=== PATIENT | female | born 1995 | race Hispanic/Latino ===

== ENCOUNTER 2017-03-21 01:18 | Observation (INO) | payer MEDICAID ==
[~2017-03-21] VITALS: Ht 165.1 cm; Wt 81.6 kg
[2017-03-21 01:57] LABS: APPEARANCE,URINE Clear (CLEAR); BILIRUBIN,URINE Negative (NEGATIVE); COLOR,URINE Yellow (YELLOW); GLUCOSE, URINE (UA) Negative (NEGATIVE); KETONES,URINE Negative (NEGATIVE); LEUKOCYTE ESTERASE ,URINE Small (NEGATIVE); NITRATE,URINE Negative (NEGATIVE); OCCULT BLOOD,URINE Negative (NEGATIVE); PROTEIN,URINE Negative (NEGATIVE)
[2017-03-21] MEDS: LACTATED RINGERS 1000ML 1,000 ML IV SCH ×2 (02:05→05:49)
[2017-03-21 02:13] LABS: AMORPHOUS SEDIMENT,UR Rare /LPF (None Seen); BACTERIA,URINE None Seen /HPF (None Seen); RBC,URINE None Seen /HPF (0-1); SQUAMOUS EPITHELIAL CELL,UR Few /LPF (0-2); WBC,URINE 0-1 /HPF (0-1)
== END 2017-03-21 10:02 | disposition home or self-care (01) ==
LOC: EDH 01:18 → LDH 01:19
PROVIDERS: ADMIT Obstetrics & Gynecology; ATTEND Obstetrics & Gynecology
DX: O60.03 Preterm labor without delivery, third trimester (principal); Z3A.35 35 weeks gestation of pregnancy
CPT/HCPCS: 81001; 96360; 96361 ×2; 99285; G0378 ×9; J7120

== ENCOUNTER 2017-04-16 10:11 | Observation (INO) | payer MEDICAID ==
[2017-04-16] MEDS ORDERED: LACTATED RINGERS 1000ML 1,000 ML IV SCH (10:30)
[2017-04-16 10:45] LABS: APPEARANCE,URINE Clear (CLEAR); BILIRUBIN,URINE Negative (NEGATIVE); COLOR,URINE Yellow (YELLOW); GLUCOSE, URINE (UA) Negative (NEGATIVE); KETONES,URINE Negative (NEGATIVE); LEUKOCYTE ESTERASE ,URINE Negative (NEGATIVE); NITRATE,URINE Negative (NEGATIVE); OCCULT BLOOD,URINE Negative (NEGATIVE); PH,URINE 6.5 (5.0-8.0); PROTEIN,URINE Negative (NEGATIVE); UROBILINOGEN,URINE 0.2 mg/dL (0.2-1.0)
[2017-04-16] MEDS ORDERED: CEFTRIAXONE SODIUM 1 GM ONE (10:57)
[2017-04-17] MEDS ORDERED: CEFTRIAXONE SODIUM 1 GM IV SCH (09:00)
== END 2017-04-16 11:50 | disposition home or self-care (01) ==
LOC: EDH 10:11 → LDH 10:12
PROVIDERS: ADMIT Obstetrics & Gynecology; ATTEND Obstetrics & Gynecology
DX: O62.9 Abnormality of forces of labor, unspecified (principal); Z3A.38 38 weeks gestation of pregnancy
CPT/HCPCS: 81003; 96360; 99285; G0378 ×2; J0696

== ENCOUNTER 2017-04-20 11:00 | Inpatient (IN) | payer MEDICAID ==
[~2017-04-20] VITALS: Ht 165.1 cm; Wt 85.3 kg
[2017-04-21] MEDS ORDERED: LACTATED RINGERS 1000ML 1,000 ML IV SCH (05:00)
[2017-04-21] MEDS ORDERED: CEFAZOLIN SODIUM 1 GM VIAL IVP PRN (05:00)
[2017-04-21] MEDS ORDERED: PREN-196 PO (05:03)
[2017-04-21 05:34] LABS: HEMATOCRIT 30.6 % (36-48); MEAN CORPUSCULAR HEMOGLOBIN 22.2 pg (27.0-33.0); MEAN CORPUSCULAR HGB CONC 31.4 g/dL (32.0-36.0); MEAN CORPUSCULAR VOLUME 70.8 fL (79-99); NUCLEATED RED BLOOD CELLS 0.1 % (0.0-0.19); PLATELET COUNT (AUTO) 202 K/uL (130-400); RED BLOOD CELL COUNT(AUTO) 4.32 MIL/uL (4.00-5.50); RED CELL DISTRIBUTION WIDTH 22.8 % (11.0-15.5); WHITE BLOOD COUNT (AUTO) 11.6 K/uL (4.8-10.8)
[2017-04-21 05:48] LABS: AMPHET/METH SCREEN,URINE NEGATIVE (NEGATIVE); BARBITURATE SCREEN, URINE NEGATIVE (NEGATIVE); BENZODIAZEPINES SCREEN,URINE NEGATIVE (NEGATIVE); CANNABINOID SCREEN,URINE NEGATIVE (NEGATIVE); COCAINE SCREEN,URINE NEGATIVE (NEGATIVE); OPIATE SCREEN,URINE NEGATIVE (NEGATIVE); PHENCYCLIDINE SCREEN,URINE NEGATIVE (NEGATIVE)
[2017-04-21] MEDS ORDERED: OXYTOCIN 10 USP UNITS/ML ONE ×3 (07:11)
[2017-04-21] MEDS ORDERED: ONDANSETRON HCL 4 MG/2 ML VIAL ONE (07:11)
[2017-04-21] MEDS ORDERED: METOCLOPRAMIDE 10 MG/2 ML VIAL IVP PRN (08:30)
[2017-04-21] MEDS ORDERED: DiphenhydrAMINE HCL 50 MG/ML VIAL IVP PRN (08:30)
[2017-04-21] MEDS ORDERED: MORPHINE SULFATE 2 MG/ML 1ML SYG IVP PRN (08:30)
[2017-04-21] MEDS ORDERED: ONDANSETRON HCL 4 MG/2 ML VIAL IVP PRN ×2 (08:30)
[2017-04-21] MEDS ORDERED: PROMETHAZINE HCL 25 MG/ML 1ML AMPULE IM PRN (08:30)
[2017-04-21] MEDS ORDERED: NALOXONE HCL 0.4 MG/1 ML ML IVP PRN ×2 (08:30)
[2017-04-21] MEDS ORDERED: ONDANSETRON HCL 4 MG/2 ML 8 MG in SODIUM CHLORIDE 0.9% 50 ML IVP NR (08:30)
[2017-04-21] MEDS ORDERED: HYDROCODONE/ACETAMINOPHEN 5/325 MG TAB PO PRN (08:30)
[2017-04-21] MEDS ORDERED: EPHEDRINE SULFATE 50 MG/ML AMPULE IVP PRN (08:30)
[2017-04-21] MEDS ORDERED: MEPERIDINE-PF 50 MG/ML SYG ONE (08:55)
[2017-04-21 09:14] VITALS: BP 141/92
[2017-04-21] MEDS ORDERED: SODIUM CHLORIDE 0.9% 10 ML VIAL IVP PRN (11:30)
[2017-04-21 11:37] VITALS: BP 141/92
[2017-04-21] MEDS: HYDROCODONE/ACETAMINOPHEN 5/325 MG TAB PO PRN ×2 (11:40→17:19)
[2017-04-21] MEDS: PROMETHAZINE HCL 25 MG/ML 1ML AMPULE IM PRN ×3 (13:10→23:32)
[2017-04-21] MEDS: MEPERIDINE-PF 75 MG/ML SYG IM PRN ×3 (13:11→23:33)
[2017-04-21 15:15] VITALS: BP 140/80
[2017-04-21] MEDS: DEXTROSE 5 %-0.45 % NACL 1,000 ML IV SCH ×2 (17:21→23:24)
[2017-04-21 19:20] VITALS: BP 127/79
[2017-04-21 23:44] VITALS: BP 138/69
[2017-04-22 03:00] VITALS: BP 134/76
[2017-04-22] MEDS: HYDROCODONE/ACETAMINOPHEN 5/325 MG TAB PO PRN (03:24)
[2017-04-22 06:00] LABS: HEMATOCRIT 29.6 % (36-48); MEAN CORPUSCULAR HEMOGLOBIN 22.3 pg (27.0-33.0); MEAN CORPUSCULAR HGB CONC 31.3 g/dL (32.0-36.0); MEAN CORPUSCULAR VOLUME 71.3 fL (79-99); PLATELET COUNT (AUTO) 181 K/uL (130-400); RED BLOOD CELL COUNT(AUTO) 4.15 MIL/uL (4.00-5.50); RED CELL DISTRIBUTION WIDTH 22.2 % (11.0-15.5); WHITE BLOOD COUNT (AUTO) 12.7 K/uL (4.8-10.8)
[2017-04-22] MEDS ORDERED: FLU VACC QS2017-18 36MOS UP/PF 60 MCG/0.5 ML ML IM ONE (06:30)
[2017-04-22] MEDS: DEXTROSE 5 %-0.45 % NACL 1,000 ML IV SCH (07:50)
[2017-04-22 08:02] VITALS: BP 120/59
[2017-04-22] MEDS ORDERED: BISACODYL 10 MG SUPP.RECT RC PRN (08:15)
[2017-04-22] MEDS ORDERED: LANOLIN 30GM OINTMENT TP PRN (08:15)
[2017-04-22] MEDS ORDERED: ACETAMINOPHEN-CODEINE 300/30MG TAB PO PRN (08:15)
[2017-04-22] MEDS: DOCUSATE SODIUM 100 MG CAP PO SCH ×2 (09:21→20:26)
[2017-04-22] MEDS: SIMETHICONE 80 MG TAB.CHEW PO PRN ×3 (09:21→20:26)
[2017-04-22] MEDS: ACETAMINOPHEN-CODEINE 300/30MG TAB PO PRN ×3 (09:21→22:01)
[2017-04-22 11:35] LABS: HEPATITIS Bs ANTIGEN SCREEN P Negative (Negative)
[2017-04-22 11:38] VITALS: BP 112/55
[2017-04-22] MEDS: IBUPROFEN 600 MG TABLET PO PRN ×2 (12:42→18:08)
[2017-04-22 15:49] VITALS: BP 113/57
[2017-04-22 19:24] VITALS: BP 124/63
[2017-04-22] MEDS ORDERED: FLU VACC QS2017-18 36MOS UP/PF 60 MCG/0.5 ML ML IM SCH (19:30)
[2017-04-22] MEDS: DIPH,PERTUSS(ACELL),TET VAC/PF 0.5 ML VIAL IM SCH (20:28)
[2017-04-22 23:20] VITALS: BP 128/71
[2017-04-23 03:16] VITALS: BP 110/55
[2017-04-23] MEDS: IBUPROFEN 600 MG TABLET PO PRN (03:19)
[2017-04-23 07:35] VITALS: BP 118/50
[2017-04-23] MEDS: DIPH,PERTUSS(ACELL),TET VAC/PF 0.5 ML VIAL IM SCH (08:15)
[2017-04-23] MEDS: DOCUSATE SODIUM 100 MG CAP PO SCH (09:09)
[2017-04-23] MEDS: ACETAMINOPHEN-CODEINE 300/30MG TAB PO PRN (09:10)
[2017-04-23 11:18] VITALS: BP 101/54
== END 2017-04-23 13:50 | disposition home or self-care (01) | DRG 540 ==
LOC: EDSTATUS 11:00 → LDH 04-21 04:49 → WSH 04-21 09:10
PROVIDERS: ADMIT Obstetrics & Gynecology; ATTEND Obstetrics & Gynecology
PROC: 10D00Z1 Extraction of Products of Conception, Low, Open Approach (ICD-10-PCS; principal; 2017-04-21 07:00)
PROC: 3E0234Z Introduction of Serum, Toxoid and Vaccine into Muscle, Percutaneous Approach (ICD-10-PCS; 2017-04-22)
DX: O34.211 Maternal care for low transverse scar from previous cesarean delivery (principal); O69.81X0 Labor and delivery complicated by cord around neck, without compression, not applicable or unspecified; Z37.0 Single live birth; Z3A.38 38 weeks gestation of pregnancy; Z23 Encounter for immunization
CPT/HCPCS: 36415; 59510; 80305; 85027; 86592; 86850; 86900; 86901; 87340; 90715; A4344; A4450; A4606; J0690; J2175; J2405; J2550; J2590; J7120; Q2038

== ENCOUNTER 2017-08-02 16:59 | Emergency (ER) | payer MEDICAID, OTHER ==
[~2017-08-02 16:59] MED LIST: PREN-196 PO
== END 2017-08-02 20:20 | disposition home or self-care (01) ==
LOC: EDH 16:59
DX: J02.0 Streptococcal pharyngitis (principal)
CPT/HCPCS: 81025

== ENCOUNTER 2017-08-29 13:57 | Emergency (ER) | payer SELFPAY ==
[2017-08-29 14:24] LABS: APPEARANCE,URINE Clear (CLEAR); BILIRUBIN,URINE Negative (NEGATIVE); COLOR,URINE Yellow (YELLOW); GLUCOSE, URINE (UA) Negative (NEGATIVE); KETONES,URINE Negative (NEGATIVE); LEUKOCYTE ESTERASE ,URINE Negative (NEGATIVE); NITRATE,URINE Negative (NEGATIVE); OCCULT BLOOD,URINE Negative (NEGATIVE); PROTEIN,URINE Negative (NEGATIVE)
[2017-08-29 14:28] LABS: HCG,QUAL RESULT NEGATIVE (NEGATIVE)
[2017-08-29 14:36] LABS: AMPHET/METH SCREEN,URINE NEGATIVE (NEGATIVE); BARBITURATE SCREEN, URINE NEGATIVE (NEGATIVE); BENZODIAZEPINES SCREEN,URINE NEGATIVE (NEGATIVE); CANNABINOID SCREEN,URINE NEGATIVE (NEGATIVE); COCAINE SCREEN,URINE NEGATIVE (NEGATIVE); OPIATE SCREEN,URINE NEGATIVE (NEGATIVE); PHENCYCLIDINE SCREEN,URINE NEGATIVE (NEGATIVE)
[2017-08-29 14:38] LABS: BASOPHILS % (AUTO) 0.9 % (0.0-5.0); EOSINOPHILS % (AUTO) 3.3 % (0.0-8.0); HEMATOCRIT 37.6 % (36-48); LYMPHOCYTES % (AUTO) 34.2 % (21.0-51.0); MEAN CORPUSCULAR HEMOGLOBIN 26.9 pg (27.0-33.0); MEAN CORPUSCULAR VOLUME 81.6 fL (79-99); NEUTROPHILS % (AUTO) 54.6 % (40.0-77.0); PLATELET COUNT (AUTO) 281 K/uL (130-400); RED BLOOD CELL COUNT(AUTO) 4.61 MIL/uL (4.00-5.50); WHITE BLOOD COUNT (AUTO) 6.4 K/uL (4.8-10.8)
[2017-08-29 14:48] LABS: CREATININE 0.7 mg/dL (0.5-1.5); POTASSIUM 3.6 mmol/L (3.5-5.1)
[2017-08-29 14:52] LABS: ALBUMIN 4.1 g/dL (3.5-5.0); BILIRUBIN,TOTAL 0.6 mg/dL (0.2-1.0); TOTAL PROTEIN, SERUM 8.6 g/dL (6.0-8.3)
[2017-08-29] MEDS ORDERED: KETOROLAC TROMETHAMINE 60 MG/2 ML VIAL ONE ×2 (15:09→15:51)
== END 2017-08-29 17:34 | disposition home or self-care (01) ==
LOC: EDH 13:57
DX: R10.31 Right lower quadrant pain (principal); Z98.890 Other specified postprocedural states
CPT/HCPCS: 36415; 80053; 80305; 81003; 81025; 83690; 85025; 96372; 99284; J1885 ×2

== ENCOUNTER 2020-08-25 00:22 | Emergency (ER) | payer MEDICAID ==
[~2020-08-25] VITALS: Ht 162.6 cm; Wt 64.0 kg
[2020-08-25] MEDS ORDERED: ONDANSETRON 4MG INJ ONE (01:44)
[2020-08-25] MEDS ORDERED: FAMOTIDINE 20MG TAB ONE ×2 (01:44→02:32)
[2020-08-25 02:04] LABS: BASOPHILS % (AUTO) 0.8 % (0.0-5.0); EOSINOPHILS % (AUTO) 3.1 % (0.0-8.0); HEMATOCRIT 33.8 % (36-48); LYMPHOCYTES % (AUTO) 33.3 % (21.0-51.0); MEAN CORPUSCULAR HEMOGLOBIN 24.2 pg (27.0-33.0); MEAN CORPUSCULAR HGB CONC 30.2 g/dL (32.0-36.0); MEAN CORPUSCULAR VOLUME 80.3 fL (79-99); MONOCYTES % (AUTO) 6.4 % (3.0-13.0); NEUTROPHILS % (AUTO) 56.2 % (40.0-77.0); PLATELET COUNT (AUTO) 298 K/uL (130-400); RED BLOOD CELL COUNT(AUTO) 4.21 MIL/uL (4.00-5.50); RED CELL DISTRIBUTION WIDTH 15.6 % (11.0-15.5); WHITE BLOOD COUNT (AUTO) 8.7 K/uL (4.8-10.8)
[2020-08-25 02:07] VITALS: BP 127/74
[2020-08-25 02:20] LABS: CREATININE 0.5 mg/dL (0.5-1.5); POTASSIUM 3.7 mmol/L (3.5-5.1)
[2020-08-25 02:25] LABS: BILIRUBIN,TOTAL 0.3 mg/dL (0.2-1.0); TOTAL PROTEIN, SERUM 8.5 g/dL (6.0-8.3)
[2020-08-25 02:31] LABS: B-TYPE NATRIURETIC PEPTIDE < 5 pg/mL (0-100)
[2020-08-25] MEDS ORDERED: ONDANSETRON ODT 4MG TAB ONE (02:32)
[2020-08-25] MEDS ORDERED: KETOROLAC 30MG VIAL (30MG/ML) IM ONE (03:15)
[2020-08-25] MEDS ORDERED: FAMO-136 PO (05:19)
[2020-08-25 05:22] VITALS: BP 122/72
== END 2020-08-25 05:30 | disposition home or self-care (01) ==
LOC: EDH 00:29
DX: R07.89 Other chest pain (principal); R94.31 Abnormal electrocardiogram [ECG] [EKG]; E03.9 Hypothyroidism, unspecified; Z79.899 Other long term (current) drug therapy
CPT/HCPCS: 36415; 71045; 80053; 81025; 82550; 83880; 84443; 84484 ×2; 85025; 93005 ×2; 99285; J2405

== ENCOUNTER 2020-09-09 12:18 | Emergency (ER) | payer MEDICAID ==
[~2020-09-09] VITALS: Ht 165.1 cm; Wt 60.8 kg
[~2020-09-09 12:18] MED LIST changes: +FAMO-136 PO
[2020-09-09 12:20] VITALS: BP 125/80
[2020-09-09 12:43] LABS: BASOPHILS % (AUTO) 1.3 % (0.0-5.0); HEMATOCRIT 35.9 % (36-48); LYMPHOCYTES % (AUTO) 36.2 % (21.0-51.0); MEAN CORPUSCULAR HEMOGLOBIN 24.1 pg (27.0-33.0); MEAN CORPUSCULAR HGB CONC 30.4 g/dL (32.0-36.0); MEAN CORPUSCULAR VOLUME 79.4 fL (79-99); MONOCYTES % (AUTO) 7.7 % (3.0-13.0); NEUTROPHILS % (AUTO) 50.7 % (40.0-77.0); PLATELET COUNT (AUTO) 343 K/uL (130-400); RED BLOOD CELL COUNT(AUTO) 4.52 MIL/uL (4.00-5.50); RED CELL DISTRIBUTION WIDTH 15.7 % (11.0-15.5)
[2020-09-09 12:51] LABS: APPEARANCE,URINE Clear (CLEAR); BILIRUBIN,URINE Negative (NEGATIVE); COLOR,URINE Yellow (YELLOW); GLUCOSE, URINE (UA) Negative (NEGATIVE); KETONES,URINE Negative (NEGATIVE); LEUKOCYTE ESTERASE ,URINE Small (NEGATIVE); NITRATE,URINE Negative (NEGATIVE); OCCULT BLOOD,URINE Negative (NEGATIVE); PH,URINE 8.5 (5.0-8.0); PROTEIN,URINE Negative (NEGATIVE)
[2020-09-09 12:53] LABS: CREATININE 0.6 mg/dL (0.5-1.5); POTASSIUM 3.7 mmol/L (3.5-5.1)
[2020-09-09 12:55] LABS: AMPHET/METH SCREEN,URINE NEGATIVE (NEGATIVE); BARBITURATE SCREEN, URINE NEGATIVE (NEGATIVE); BENZODIAZEPINES SCREEN,URINE NEGATIVE (NEGATIVE); CANNABINOID SCREEN,URINE NEGATIVE (NEGATIVE); COCAINE SCREEN,URINE NEGATIVE (NEGATIVE); OPIATE SCREEN,URINE NEGATIVE (NEGATIVE); PHENCYCLIDINE SCREEN,URINE NEGATIVE (NEGATIVE)
[2020-09-09 12:57] LABS: ALBUMIN 4.4 g/dL (3.5-5.0); BILIRUBIN,TOTAL 0.5 mg/dL (0.2-1.0); TOTAL PROTEIN, SERUM 8.8 g/dL (6.0-8.3)
[2020-09-09 12:57] LABS: HCG,QUAL RESULT NEGATIVE (NEGATIVE)
[2020-09-09 13:41] LABS: BACTERIA,URINE Few /HPF (None Seen); RBC,URINE None Seen /HPF (0-1)
[2020-09-09 13:42] LABS: MUCUS,URINE Few LPF (None Seen)
[2020-09-09] MEDS ORDERED: CEPH500B PO (13:54)
[2020-09-09] MEDS ORDERED: IBUP-2070 PO (13:54)
== END 2020-09-09 14:00 | disposition home or self-care (01) ==
LOC: EDH 12:18
DX: N39.0 Urinary tract infection, site not specified (principal); F41.9 Anxiety disorder, unspecified; E03.9 Hypothyroidism, unspecified
CPT/HCPCS: 36415; 80053; 80305; 81001; 81025; 82150; 83690; 85025

== ENCOUNTER 2022-02-04 02:11 | Observation (INO) | payer MEDICAID ==
[~2022-02-04] VITALS: Ht 165.1 cm; Wt 67.6 kg
[~2022-02-04 02:11] MED LIST changes: +CEPH500B PO; +IBUP-2070 PO
[2022-02-04] MEDS ORDERED: CEFTRIAXONE 1G VIAL IVP ONE (02:30)
[2022-02-04] MEDS ORDERED: LACTATED RINGERS 1000ML IV PRN (02:30)
[2022-02-04] MEDS ORDERED: ACETAMINOPHEN WITH CODEINE 1 TAB TAB PO ONE (02:30)
[2022-02-04 02:52] LABS: BILIRUBIN,URINE NEGATIVE (NEGATIVE); COLOR,URINE LIGHT-YELLOW (YELLOW); GLUCOSE, URINE (UA) TRACE mg/dL (NEGATIVE); KETONES,URINE NEGATIVE (NEGATIVE); LEUKOCYTE ESTERASE ,URINE 500 Leu/uL (NEGATIVE); NITRATE,URINE NEGATIVE (NEGATIVE); OCCULT BLOOD,URINE NEGATIVE (NEGATIVE); PH,URINE 7.5 (5.0-8.0); PROTEIN,URINE 20 mg/dL (NEGATIVE); UROBILINOGEN,URINE 0.2 mg/dL (0.2-1.0)
[2022-02-04 02:53] LABS: APPEARANCE,URINE SLIGHTLY CLOUDY (CLEAR)
[2022-02-04 02:59] LABS: AMPHET/METH SCREEN,URINE NEGATIVE (NEGATIVE); BACTERIA,URINE RARE /HPF (None Seen); BARBITURATE SCREEN, URINE NEGATIVE (NEGATIVE); BENZODIAZEPINES SCREEN,URINE NEGATIVE (NEGATIVE); CANNABINOID SCREEN,URINE NEGATIVE (NEGATIVE); COCAINE SCREEN,URINE NEGATIVE (NEGATIVE); MUCUS,URINE RARE LPF (None Seen); OPIATE SCREEN,URINE NEGATIVE (NEGATIVE); PHENCYCLIDINE SCREEN,URINE NEGATIVE (NEGATIVE); SQUAMOUS EPITHELIAL CELL,UR MOD /HPF (0-2); WBC,URINE 51-100 /HPF (0-1)
[2022-02-04 03:37] VITALS: BP 100/52
[2022-02-04] MEDS ORDERED: ACETAMINOPHEN 500 MG TABLET PO ONE (04:00)
[2022-02-04] MEDS ORDERED: ACETAMINOPHEN 500 MG TABLET ONE (04:04)
== END 2022-02-04 05:00 | disposition home or self-care (01) ==
LOC: EDH 02:11 → LDH 02:12
PROVIDERS: ADMIT Obstetrics & Gynecology; ATTEND Obstetrics & Gynecology
DX: O26.892 Other specified pregnancy related conditions, second trimester (principal); Z20.822 Contact with and (suspected) exposure to COVID-19; R10.9 Unspecified abdominal pain; R05.9 Cough, unspecified; O99.891 Other specified diseases and conditions complicating pregnancy; M54.50 Low back pain, unspecified; O99.332 Smoking (tobacco) complicating pregnancy, second trimester; F17.210 Nicotine dependence, cigarettes, uncomplicated; Z3A.24 24 weeks gestation of pregnancy
CPT/HCPCS: 96374; 96361; 80305; 87077; 87088; 87186; 87804 ×2; 81001; 87635; G0378 ×3; G0379; J7120; J0696; 96360; 96365

== ENCOUNTER 2022-04-05 15:48 | Observation (INO) | payer MEDICAID ==
[~2022-04-05] VITALS: Ht 165.1 cm; Wt 72.6 kg
[2022-04-05 15:51] VITALS: BP 124/61
[2022-04-05 16:23] LABS: APPEARANCE,URINE CLEAR (CLEAR); BILIRUBIN,URINE NEGATIVE (NEGATIVE); COLOR,URINE LIGHT-YELLOW (YELLOW); GLUCOSE, URINE (UA) NEGATIVE (NEGATIVE); KETONES,URINE NEGATIVE (NEGATIVE); LEUKOCYTE ESTERASE ,URINE NEGATIVE Leu/uL (NEGATIVE); NITRATE,URINE NEGATIVE (NEGATIVE); OCCULT BLOOD,URINE NEGATIVE (NEGATIVE); PROTEIN,URINE NEGATIVE (NEGATIVE); UROBILINOGEN,URINE 0.2 mg/dL (0.2-1.0)
[2022-04-05 16:54] LABS: AMPHET/METH SCREEN,URINE NEGATIVE (NEGATIVE); BARBITURATE SCREEN, URINE NEGATIVE (NEGATIVE); BENZODIAZEPINES SCREEN,URINE NEGATIVE (NEGATIVE); CANNABINOID SCREEN,URINE NEGATIVE (NEGATIVE); COCAINE SCREEN,URINE NEGATIVE (NEGATIVE); OPIATE SCREEN,URINE NEGATIVE (NEGATIVE); PHENCYCLIDINE SCREEN,URINE NEGATIVE (NEGATIVE)
[2022-04-05] MEDS ORDERED: ONDANSETRON 4MG INJ IVP SCH (17:30)
[2022-04-05] MEDS ORDERED: LACTATED RINGERS 1000ML 1,000 ML IV SCH (17:30)
[2022-04-05] MEDS ORDERED: BUTORPHANOL TARTRATE 2 MG/ML IVP SCH (17:30)
== END 2022-04-05 17:40 | disposition left against medical advice (07) ==
LOC: EDH 15:48 → LDH 16:06
PROVIDERS: ADMIT Obstetrics & Gynecology; ATTEND Obstetrics & Gynecology
DX: O99.891 Other specified diseases and conditions complicating pregnancy (principal); M54.9 Dorsalgia, unspecified; O26.893 Other specified pregnancy related conditions, third trimester; R51.9 Headache, unspecified; Z3A.32 32 weeks gestation of pregnancy
CPT/HCPCS: 80305; 81003; G0379; G0378